=== PATIENT | female | born 1945 | race Two or more races ===

== ENCOUNTER 2018-06-05 08:50 | Day surgery (SDC) | payer OTHER ==
[~2018-06-05 08:50] MED LIST: ANAPROX275 MG PO; ARICEPT10 MG PO; ASA81 MG PO; BONIVA150 MG PO; LOSARTAN-HCTZ1 EAC1 PO; SIMVASTATIN40 MG PO; ZINC LOZENGES1 EACH PO; ZOLOFT25 MG PO
[2018-06-05] MEDS ORDERED: NAPROXEN SODIU550 M1 PO (12:13)
== END 2018-06-05 15:45 | disposition home or self-care (01) ==
LOC: CIR.AMB 08:50
DX: N84.0 Polyp of corpus uteri (principal)